=== PATIENT | male | born 1955 | race Caucasian/White ===

== ENCOUNTER 2021-08-13 06:33 | Emergency (ER) | payer MEDICARE, OTHER ==
[~2021-08-13] VITALS: Ht 170.2 cm; Wt 55.3 kg
[2021-08-13 07:18] LABS: BASOPHILS ABSOLUTE AUTO 0.01 K/mm3 (0.00-0.23); BASOPHILS PERCENT AUTO 0 % (0-2); EOSINOPHILS ABSOLUTE AUTO 0.01 K/mm3 (0.00-0.68); EOSINOPHILS PERCENT AUTO 0 % (0-6); Hematocrit 47.5 % (37.0-53.0); Hemoglobin 16.3 g/dL (13.5-17.5); IMMATURE GRAN ABSOLUTE AUTO 0.02 K/mm3 (0.00-0.10); IMMATURE GRAN PERCENT AUTO 0 % (0-1); LYMPHOCYTES PERCENT AUTO 8 % (21-46); MONOCYTES ABSOLUTE AUTO 0.39 K/mm3 (0.16-1.47); MONOCYTES PERCENT AUTO 4 % (4-13); Mean Corpuscular HGB 31.9 pg (26.0-34.0); Mean Corpuscular HGB Conc 34.3 g/dL (31.5-36.5); Mean Corpuscular Volume 93 fL (80-100); Mean Platelet Volume 9.2 fL (9.1-12.4); NEUTROPHILS ABSOLUTE AUTO 7.89 K/mm3 (1.96-9.15); NEUTROPHILS PERCENT AUTO 88 % (41-73); Platelet Count 183 K/mm3 (150-400); RDW Coefficient Variation 11.9 % (11.7-14.2); RDW Standard Deviation 41.1 fL (35.1-46.3); Red Blood Cell Count 5.11 M/mm3 (4.30-5.90); White Blood Cell Count 9.02 K/mm3 (4.00-11.30)
[2021-08-13 07:29] LABS: Anion Gap 8 mmol/L (6-16); Blood Urea Nitrogen 21 mg/dL (8-24); Bun/Creatinine Ratio 36.3 (12.0-20.0); CO2, Blood 27 mmol/L (21-32); Calcium, Blood 8.6 mg/dL (8.5-10.1); Chloride, Blood 105 mmol/L (98-108); Creatinine, Blood 0.58 mg/dL (0.60-1.20); Glomerular Filtration Rate >60 (60-); Glucose, Blood 113 mg/dL (70-99); Potassium, Blood 3.7 mmol/L (3.5-5.5); Sodium, Blood 140 mmol/L (136-145)
[2021-08-13 07:59] LABS: Influenza A, PCR NEGATIVE (NEGATIVE); Influenza B, PCR NEGATIVE (NEGATIVE); Resp Syncytial Virus, PCR NEGATIVE (NEGATIVE); SARS-Cov-2 (COVID-19) PCR, MMC NEGATIVE (NEGATIVE)
[2021-08-13] MEDS ORDERED: AZIT250 PO (08:20)
[2021-08-13] MEDS ORDERED: PRED20 PO (08:20)
[2021-08-13] MEDS ORDERED: ALBU90OI INH (08:20)
== END 2021-08-13 08:50 | disposition home or self-care (01) ==
LOC: ER 06:33
PROVIDERS: Emergency Medicine
DX: J44.1 Chronic obstructive pulmonary disease with (acute) exacerbation (principal); F17.210 Nicotine dependence, cigarettes, uncomplicated; Z20.822 Contact with and (suspected) exposure to COVID-19
CPT/HCPCS: 0241U; 71045; 80048; 85025; J2930

== ENCOUNTER 2022-03-24 10:05 | Emergency (ER) | payer MEDICARE, OTHER ==
[~2022-03-24] VITALS: Ht 170.2 cm; Wt 57.6 kg
[~2022-03-24 10:05] MED LIST: ALBU90OI INH; AZIT250 PO; PRED20 PO
[2022-03-24 11:01] LABS: BASOPHILS ABSOLUTE AUTO 0.03 K/mm3 (0.00-0.23); BASOPHILS PERCENT AUTO 1 % (0-2); EOSINOPHILS ABSOLUTE AUTO 0.07 K/mm3 (0.00-0.68); EOSINOPHILS PERCENT AUTO 1 % (0-6); Hematocrit 51.6 % (37.0-53.0); Hemoglobin 17.7 g/dL (13.5-17.5); IMMATURE GRAN ABSOLUTE AUTO 0.01 K/mm3 (0.00-0.10); IMMATURE GRAN PERCENT AUTO 0 % (0-1); LYMPHOCYTES ABSOLUTE AUTO 1.42 K/mm3 (0.84-5.20); LYMPHOCYTES PERCENT AUTO 23 % (21-46); MONOCYTES ABSOLUTE AUTO 0.28 K/mm3 (0.16-1.47); MONOCYTES PERCENT AUTO 4 % (4-13); Mean Corpuscular HGB 31.4 pg (26.0-34.0); Mean Corpuscular HGB Conc 34.3 g/dL (31.5-36.5); Mean Corpuscular Volume 92 fL (80-100); Mean Platelet Volume 9.3 fL (9.1-12.4); NEUTROPHILS ABSOLUTE AUTO 4.49 K/mm3 (1.96-9.15); NEUTROPHILS PERCENT AUTO 71 % (41-73); Platelet Count 182 K/mm3 (150-400); RDW Standard Deviation 40.8 fL (35.1-46.3); Red Blood Cell Count 5.64 M/mm3 (4.30-5.90)
[2022-03-24 11:17] LABS: Albumin, Blood 4.1 g/dL (3.4-5.0); Albumin/Globulin Ratio 1.1 (0.8-1.8); Bilirubin, Total 1.1 mg/dL (0.1-1.0); Bun/Creatinine Ratio 21.4 (12.0-20.0); Calcium, Blood 9.1 mg/dL (8.5-10.1); Creatinine, Blood 0.65 mg/dL (0.60-1.20); Globulin, Blood 3.6 g/dL (2.2-4.0); Total Protein, Blood 7.7 g/dL (6.4-8.2)
== END 2022-03-24 12:52 | disposition home or self-care (01) ==
LOC: ER 10:05
PROVIDERS: Physician Assistant
DX: R42 Dizziness and giddiness (principal); F17.210 Nicotine dependence, cigarettes, uncomplicated; H61.23 Impacted cerumen, bilateral
CPT/HCPCS: 36415; 71046; 80053; 85025; 93005; 93010; 99284-25; A9270

== ENCOUNTER 2022-07-13 05:04 | Inpatient (IN) | payer MEDICARE ==
[~2022-07-13] VITALS: Ht 170.2 cm; Wt 53.6 kg
[2022-07-13 06:33] LABS: Hematocrit 52.5 % (37.0-53.0); Hemoglobin 18.4 g/dL (13.5-17.5); Mean Corpuscular HGB 31.6 pg (26.0-34.0); Mean Corpuscular Volume 90 fL (80-100); Mean Platelet Volume 10.3 fL (9.1-12.4); Platelet Count 174 K/mm3 (150-400); RDW Coefficient Variation 12.3 % (11.7-14.2); RDW Standard Deviation 40.6 fL (35.1-46.3); Red Blood Cell Count 5.83 M/mm3 (4.30-5.90); White Blood Cell Count 9.96 K/mm3 (4.00-11.30)
[2022-07-13 06:34] LABS: Albumin, Blood 2.8 g/dL (3.4-5.0); Albumin/Globulin Ratio 0.6 (0.8-1.8); Bilirubin, Total 2.1 mg/dL (0.1-1.0); Bun/Creatinine Ratio 45.1 (12.0-20.0); Creatinine, Blood 0.84 mg/dL (0.60-1.20); Globulin, Blood 4.5 g/dL (2.2-4.0); Potassium, Blood 4.3 mmol/L (3.5-5.5); Total Protein, Blood 7.3 g/dL (6.4-8.2)
[2022-07-13 06:52] LABS: Influenza B, PCR NEGATIVE (NEGATIVE); Resp Syncytial Virus, PCR NEGATIVE (NEGATIVE); SARS-Cov-2 (COVID-19) PCR, MMC NEGATIVE (NEGATIVE)
[2022-07-13 07:01] LABS: Influenza A, PCR POSITIVE (NEGATIVE)
[2022-07-13 07:10] LABS: BAND PERCENT MAN 32 % (0-8); BASOPHILS PERCENT MAN 0 % (0-2); EOSINOPHILS PERCENT MAN 0 % (0-6); LYMPHOCYTES ABSOLUTE MAN 0.29 K/mm3 (0.84-5.20); LYMPHOCYTES PERCENT MAN 3 % (21-46); METAMYELOCYTE ABSOLUTE MAN 0.19 K/mm3 (0.00-0.00); METAMYELOCYTE PERCENT MAN 2 % (0-0); MONOCYTES PERCENT MAN 0 % (4-13); NEUTROPHILS ABSOLUTE MAN 9.46 K/mm3 (1.96-9.15); SEG NEUTROPHILS PERCENT MAN 63 % (41-73); TOTAL CELLS COUNTED 100
[2022-07-13 10:11] LABS: Base Excess Venous 1.2 mmol/L; Bicarbonate Venous 25.8 mmol/L (24.0-30.0); pH Blood Venous 7.45 (7.34-7.37)
--- NOTE | 2022-07-13 13:07 | NUR ---
Echocardiogram completed.
--- NOTE | 2022-07-13 20:57 | NUR ---
SHIFT SUMMARY PTN TRANSFER FROM ER IN AFTERNOON WITH PNEUMONIA. HX LUNG CA WITH LEFT UPPER LOBECTOMY. PTN IN SOME DISCOMFORT, BUT RESTING WELL THIS SHIFT. CONTINUE TO MONITOR.
[2022-07-14 05:37] LABS: Hematocrit 46.3 % (37.0-53.0); Hemoglobin 16.1 g/dL (13.5-17.5); Mean Corpuscular HGB 31.3 pg (26.0-34.0); Mean Corpuscular HGB Conc 34.8 g/dL (31.5-36.5); Mean Corpuscular Volume 90 fL (80-100); Mean Platelet Volume 10.1 fL (9.1-12.4); Platelet Count 146 K/mm3 (150-400); RDW Coefficient Variation 12.3 % (11.7-14.2); RDW Standard Deviation 41.2 fL (35.1-46.3); Red Blood Cell Count 5.15 M/mm3 (4.30-5.90); White Blood Cell Count 6.82 K/mm3 (4.00-11.30)
[2022-07-14 06:08] LABS: Albumin, Blood 2.1 g/dL (3.4-5.0); Albumin/Globulin Ratio 0.5 (0.8-1.8); Bilirubin, Direct 0.4 mg/dL (0.0-0.3); Bilirubin, Indirect 0.5 mg/dL (0.1-0.7); Bilirubin, Total 0.9 mg/dL (0.1-1.0); Bun/Creatinine Ratio 50.8 (12.0-20.0); Calcium, Blood 8.9 mg/dL (8.5-10.1); Creatinine, Blood 0.61 mg/dL (0.60-1.20); Globulin, Blood 3.9 g/dL (2.2-4.0); Potassium, Blood 4.2 mmol/L (3.5-5.5)
[2022-07-14 06:29] LABS: BAND PERCENT MAN 47 % (0-8); BASOPHILS PERCENT MAN 0 % (0-2); EOSINOPHILS PERCENT MAN 0 % (0-6); LYMPHOCYTES ABSOLUTE MAN 0.13 K/mm3 (0.84-5.20); LYMPHOCYTES PERCENT MAN 2 % (21-46); MONOCYTES ABSOLUTE MAN 0.06 K/mm3 (0.16-1.47); MONOCYTES PERCENT MAN 1 % (4-13); NEUTROPHILS ABSOLUTE MAN 6.61 K/mm3 (1.96-9.15); SEG NEUTROPHILS PERCENT MAN 50 % (41-73); TOTAL CELLS COUNTED 100
--- NOTE | 2022-07-14 13:09 | NUR ---
Spiritual Care Visit. Pt. is awake and had just been served lunch when he welcomed my visit. Pt. is pleasant, but is unsettled about his lung condition. Listen empathetically with a caplming presence. Pt. verbalizes that he has been staying at the [facility] [place], Pt. displays evidence of being somewhat embarassed by his situation, but is engaged and aware of his diagnosis. Prayd with the Pt. Pt. verbalized gratitude for the spiritual care visit.
--- NOTE | 2022-07-14 16:47 | NUR ---
SHIFT SUMMARY MR WILKERSON IS A&OX4. MAIN C/O COUGH, LEFT CHEST CONGESTION AND PAIN ON COUGHING. SWALLOWING SPUTUM, NONE SEEN. EATING AND DRINKING WELL. UP TO THE BATHROOM INDEPENDENTLY, DID C/O STOOL URGENCY/DIARRHEA X1. TYLENOL AND TORADOL INEFFECTIVE FOR PAIN RELIEF. TESSLON PEARLS HAVE EASED THE COUGH AND THE DISCOMFORT PER PT. EDUCATED ON IS AND ENCOURAGED TO PERFORM AND GOOD TECHNIQUE AT 750MLS. ON 4L O2 NC ALL DAY, RECEIVING RESPIRATORY TREATMENTS. BED LOW, CALL LIGHT IN REACH.
--- NOTE | 2022-07-15 03:13 | NUR ---
Patient resting in bed, no complaints of pain or discomfort at this time.
--- NOTE | 2022-07-15 06:27 | NUR ---
pt had 4 litter of 02 from nasal cannula at time of vitals
--- NOTE | 2022-07-15 17:37 | NUR ---
SHIFT SUMMARY PT REMAINED ON 4LPM VIA NC OXYGEN. WILL BECOME SOB WHEN AMBULATING TO BATHROOM. LUNGS ARE DIMINISHED AND WHEEZY. VISITED AT BEDSIDE BY HIS FRIEND ANGELICA, FROM THE [facility]. ANGELICA APPEARS TO BE A SUPPORT PERSON, THAT PT TRUSTS. DR. RAY ROUNDED AND ADDED A ONE TIME DOSE OF LASIX IV. PT IS INDEPENDENT IN ROOM, AND CAN USE URINAL AT BEDSIDE. PT IS A&O X4, PLEASANT. IV ACCESS TO LEFT HAND. PT SHOWERED TODAY. MONITORED REMOTELY BY TELEMETRY, CONTINUED IN THE SINUS RHYTHM. PT DENIES HAVING A PACEMAKER. BED IN LOWEST POSITION. ISO PRECAUTIONS FOR FLU/PNA. PT USES CALL LIGHT APPROPRIATELY.
--- NOTE | 2022-07-16 05:23 | NUR ---
SUMMARY: PATIENT DID WELL OVERNIGHT. INDEPENDENT IN ROOM. 4L NC. IV STEROIDS GIVEN. NO ACUTE EVENTS. VSS. TELE IN PLACE RUNNING SR. PATIENT AOX4. PLEASANT WITH STAFF, COMPLIANT WITH ALL CARE. CALL LIGHT IN REACH.
--- NOTE | 2022-07-16 18:15 | NUR ---
PT CONTINUES ON 4LPM VIA NC. A&O X4. VSS. INDEPENDENT IN ROOM. DR. COBB ADDED A FLUTTER VALVE AND A NEW ANTIBIOTIC TO TREATMENT PLAN. PT'S PAIN WAS WELL CONTROLLED THIS SHIFT WITH TYLENOL 3, ONE TIME PRN. PT WITH HX OF LUNG CANCER, AND LEFT UPPER LOBECTOMY. PT IS RESIDENT OF [facility], WHERE HE HAS HIS OWN APARTMENT. PT'S FRIEND ANGELICA CASILLAS VISITED HIM AGAIN TODAY. BED IN LOWEST POSITION, PT ABLE TO USE CALL LIGHT APPROPRIATELY.
--- NOTE | 2022-07-17 05:00 | NUR ---
SHIFT SUMMARY ADMITTED FOR LEFT SIDE PNEUMONIA/SEPSIS. FULL CODE. FLU+. ANTIB RX AND TAMIFLU ARE SCHEDULED. HOME O2 EVAL MAY BE NECESSARY. HE RESIDES AT THE [facility]. IT IS REPORTED THAT HE HAS HIS OWN APARTMENT AND COATS THERE. HE IS INDEPENDENT - BRP. HE DENIES PAIN THUS FAR THIS SHIFT. HE IS A&O X4. TELEMETRY: NSR @ 63 BPM. HE IS PLEASANT AND COOPERATIVE WITH CARE. NO NEW CONCERNS THIS SHIFT
--- NOTE | 2022-07-17 19:42 | NUR ---
DANE CONTINUED ON 4LPM O2. TRANSITIONED TO PO STEROIDS AND PO ABX. IV ACCESS TO RIGHT FOREARM. INDEPENDENT IN ROOM AND USES THE URINAL. ENCOURAGE USE OF FLUTTER VALVE. PAINFUL WITH COUGHING, RAMSEY ON THE LEFT SIDE. TREATING PAIN WITH TYLENOL #3. TELEMETRY MONITORED DANE, HE IS SINUS IN THE 70'S TO 80'S. DENIES CHEST PRESSURE AND PAIN. NO ACUTE CHANGES. WILL NEED HOME OXYGEN EVAL PRIOR TO DISCHARGE. LIVES IN AN APARTMENT IN THE [facility], WITH HIS OWN COATS.
--- NOTE | 2022-07-18 04:42 | NUR ---
PARQUETRY LAYER SUMMARY: A&Ox4. PLEASANT AND COOPERATIVE WITH CARE. CALLS APPROPRIATELY AND IS ABLE TO ADVOCATE NEEDS. INDEPENDENT WITHIN ROOM AND UTILIZES BEDSIDE URINAL FOR VOIDING. TELE SINUS; BATTERIES CHANGED DURING THIS SHIFT. ENCOURAGE USE OF FLUTTER VALVE TO HELP WITH CHEST CONGESTION. MEDICATED x1 T-3 AT BEDTIME FOR C/O PAIN R/T COUGHING. ALSO ADMINISTERED PRN TESSALON PERLES. MAINTAINING SPO2 >92% ON 4L/min VIA NC. ANTICIPATE DC HOME TO [facility] (HE HAS AN APARTMENT AT THIS FACILITY) BUT WILL NEED A HOME 02 EVAL COORDINATED PRIOR TO DC. WILL REPORT TO ONCOMING RN.
[2022-07-18] MEDS ORDERED: MASOPHEN325 M2 PO (10:58)
[2022-07-18] MEDS ORDERED: AMOCLA875 PO (10:59)
[2022-07-18] MEDS ORDERED: Tessalon200 MG PO (11:01)
[2022-07-18] MEDS ORDERED: IPRAT-ALBUT 0.5-3 ML INH (11:03)
[2022-07-18] MEDS ORDERED: NICO21TP TOP (11:05)
[2022-07-18] MEDS ORDERED: PANT20 PO (11:05)
[2022-07-18] MEDS ORDERED: PRED20 PO (11:05)
[2022-07-18] MEDS ORDERED: VISBIOME 112.51 EACH PO (11:07)
[2022-07-18] MEDS ORDERED: FLUTICASONE-SA1 EA11 INH (11:12)
--- NOTE | 2022-07-18 13:06 | NUR ---
PLAN IS FOR DISCHARGE BACK TO [facility], WHERE PT HAS HIS OWN APARTMENT AND COATS. HOME O2 EVAL COMPLETED, WHICH INDICATED THAT PT REQUIRED 2LPM O2 VIA NC TO MAINTAIN SATS GREATER THAN 90% WITH ACTIVITY. MEDICATION DISCHARGE TEACHING WAS COMPLETED BY TELECOMMUNICATIONS CONSULTANT JEAN. PT'S RIDE WILL BE FROM A FRIEND VIA PRIVATE VEHICLE BACK TO [facility].
--- NOTE | 2022-07-18 13:44 | NUR ---
OK FROM NURSING TRAVELING REPAIR ACCOUNTANT - [facility] WILL PAY FOR A TAXI TO THE [facility]. AWAITING DELIVERY FROM [facility] OF OXYGEN EQUIPMENT.
--- NOTE | 2022-07-18 15:40 | NUR ---
PT WAS DISCHARGED TO [facility] VIA [facility] TAXI, ALL WITH ALL HIS BELONGINGS. DISCHARGE TEACHING COMPLETED, INCLUDING KEEPING 07/[address] HERNÁNDEZ AND HAVING HOME NEBULIZER DELIVERED BY [facility]. MEDICATIONS WERE FAXED TO [facility] BY CHARGE NURSE JEAN. PT WAS CONNECTED TO CONTINUOUS 2LPM O2 VIA HOME MACHINE DELIVERED BY [facility]. PT HAD NO FURTHER QUESTIONS AT THIS TIME. TELE WAS REMOVED, IV WAS REMOVED.
== END 2022-07-18 13:57 | disposition home or self-care (01) | DRG 871 ==
LOC: ER 05:04 → ERHOLD 08:40 → MEDS 15:10
PROVIDERS: Student in an Organized Health Care Education/Training Program; ADMIT Internal Medicine
DX: A41.89 Other specified sepsis (principal); J10.00 Influenza due to other identified influenza virus with unspecified type of pneumonia; J96.01 Acute respiratory failure with hypoxia; J44.1 Chronic obstructive pulmonary disease with (acute) exacerbation; J44.0 Chronic obstructive pulmonary disease with (acute) lower respiratory infection; Z68.1 Body mass index [BMI] 19.9 or less, adult; R65.20 Severe sepsis without septic shock; F17.210 Nicotine dependence, cigarettes, uncomplicated; R79.1 Abnormal coagulation profile; R74.8 Abnormal levels of other serum enzymes; R63.0 Anorexia; R19.7 Diarrhea, unspecified; Z20.822 Contact with and (suspected) exposure to COVID-19; Z88.8 Allergy status to other drugs, medicaments and biological substances; Z59.01 Sheltered homelessness; Z79.2 Long term (current) use of antibiotics; Z79.51 Long term (current) use of inhaled steroids; Z79.52 Long term (current) use of systemic steroids; Z85.118 Personal history of other malignant neoplasm of bronchus and lung; Z98.890 Other specified postprocedural states
CPT/HCPCS: 0241U; 36415; 71046; 80048; 80053; 80076; 82803; 83605; 83880; 84145; 84484; 85025; 87040; 93005; 93010; 93306; 94640; 94664; 94760; 94761; 96374; 96375; 96376; 99285-25; A9270; C9113; J0696; J1650; J1885; J1940; J2270; J2930; J7030; J7120; J7512

== ENCOUNTER 2022-08-16 10:18 | Observation (INO) | payer MEDICARE, OTHER ==
[~2022-08-16] VITALS: Ht 170.2 cm; Wt 54.4 kg
[~2022-08-16 10:18] MED LIST changes: +AMOCLA875 PO; +FLUTICASONE-SA1 EA11 INH; +IPRAT-ALBUT 0.5-3 ML INH; +MASOPHEN325 M2 PO; +NICO21TP TOP; +PANT20 PO; +Tessalon200 MG PO; +VISBIOME 112.51 EACH PO
[2022-08-16 11:05] LABS: BASOPHILS ABSOLUTE AUTO 0.02 K/mm3 (0.00-0.23); BASOPHILS PERCENT AUTO 0 % (0-2); EOSINOPHILS PERCENT AUTO 0 % (0-6); Hematocrit 47.4 % (37.0-53.0); Hemoglobin 15.9 g/dL (13.5-17.5); IMMATURE GRAN ABSOLUTE AUTO 0.03 K/mm3 (0.00-0.10); IMMATURE GRAN PERCENT AUTO 0 % (0-1); LYMPHOCYTES ABSOLUTE AUTO 1.15 K/mm3 (0.84-5.20); LYMPHOCYTES PERCENT AUTO 14 % (21-46); MONOCYTES ABSOLUTE AUTO 0.45 K/mm3 (0.16-1.47); MONOCYTES PERCENT AUTO 6 % (4-13); Mean Corpuscular HGB 31.1 pg (26.0-34.0); Mean Corpuscular HGB Conc 33.5 g/dL (31.5-36.5); Mean Corpuscular Volume 93 fL (80-100); Mean Platelet Volume 8.6 fL (9.1-12.4); NEUTROPHILS ABSOLUTE AUTO 6.58 K/mm3 (1.96-9.15); NEUTROPHILS PERCENT AUTO 80 % (41-73); Platelet Count 244 K/mm3 (150-400); RDW Coefficient Variation 12.6 % (11.7-14.2); RDW Standard Deviation 43.3 fL (35.1-46.3); Red Blood Cell Count 5.11 M/mm3 (4.30-5.90); White Blood Cell Count 8.23 K/mm3 (4.00-11.30)
[2022-08-16 11:06] LABS: Source, Urine Clean Catch
[2022-08-16 11:09] LABS: Appearance, Urine Clear (Clear); Bilirubin, Urine Neg (Neg); Blood, Urine 1+ (Neg); Color, Urine Yellow (P-Yellow); Glucose Qualitative, Urine Neg (Neg); Ketones, Urine Neg (Neg); Leukocyte Esterase, Urine Neg (Neg); Nitrite, Urine Neg (Neg); Protein, Urine 1+ (Neg); Specific Gravity, Urine 1.015 (1.003-1.022); Urobilinogen, Urine NORM (Normal); pH, Urine 6.5 (5.0-8.0)
[2022-08-16 11:26] LABS: U Amphetamine Screen Not Detected; U Barbituate Screen Not Detected; U Benzodiazapine Screen Not Detected; U Buprenorphine Screen Not Detected; U Cannabinoids Screen Not Detected; U Cocaine Screen Not Detected; U Methadone Screen Not Detected; U Methamphetamine Screen Not Detected; U Opiates Screen Not Detected; U Oxycodone Screen Not Detected; U Phencyclidine Screen Not Detected; U Propoxyphene Screen Not Detected
[2022-08-16 11:34] LABS: Ethanol (Alcohol), Blood, Med <3 mg/dL; Salicylate <1.7 mg/dL (2.8-20.0)
[2022-08-16 11:35] LABS: Acetaminophen, Random <2.0 ug/mL (10.0-30.0); Alanine Aminotransfer (ALT/SGP 21 U/L (12-78); Albumin, Blood 3.5 g/dL (3.4-5.0); Albumin/Globulin Ratio 0.9 (0.8-1.8); Alk Phos 83 U/L (50-136); Anion Gap 2 mmol/L (6-16); Aspartate Aminotrans (AST/SGOT 14 U/L (12-37); Bilirubin, Total 0.9 mg/dL (0.1-1.0); Blood Urea Nitrogen 10 mg/dL (8-24); Bun/Creatinine Ratio 17.4 (12.0-20.0); CO2, Blood 31 mmol/L (21-32); Calcium, Blood 9.1 mg/dL (8.5-10.1); Chloride, Blood 103 mmol/L (98-108); Creatinine, Blood 0.57 mg/dL (0.60-1.20); Globulin, Blood 3.7 g/dL (2.2-4.0); Glomerular Filtration Rate 108 (60-); Glucose, Blood 122 mg/dL (70-99); Potassium, Blood 3.9 mmol/L (3.5-5.5); Sodium, Blood 136 mmol/L (136-145); Total Protein, Blood 7.2 g/dL (6.4-8.2)
[2022-08-16 11:41] LABS: Bacteria Rare /hpf; Red Blood Cells, Urine 0-2 /hpf (0-2); Squamous Epithelial Cells Rare /hpf (Few); White Blood Cells, Urine 0-2 /hpf (0-5)
[2022-08-16 12:32] LABS: Influenza A, PCR NEGATIVE (NEGATIVE); Influenza B, PCR NEGATIVE (NEGATIVE); Resp Syncytial Virus, PCR NEGATIVE (NEGATIVE); SARS-Cov-2 (COVID-19) PCR, MMC NEGATIVE (NEGATIVE)
== END 2022-08-18 22:15 ==
LOC: ER 10:18 → EOR 10:19
PROVIDERS: Physician Assistant; ADMIT Student in an Organized Health Care Education/Training Program
DX: R45.851 Suicidal ideations (principal); J44.9 Chronic obstructive pulmonary disease, unspecified; F17.210 Nicotine dependence, cigarettes, uncomplicated; Z85.118 Personal history of other malignant neoplasm of bronchus and lung; Z88.8 Allergy status to other drugs, medicaments and biological substances
CPT/HCPCS: 0241U; 36415; 71045; 71250; 80053; 81001; 85025; 93005; 93010; 99285-25; A9270; G0378; G0480

== ENCOUNTER 2022-10-13 08:39 | Emergency (ER) | payer MEDICARE, OTHER ==
[~2022-10-13] VITALS: Ht 170.2 cm; Wt 54.4 kg
[2022-10-13] MEDS ORDERED: HYDHCL25 PO (09:33)
[2022-10-13] MEDS ORDERED: MELATONIN5 M1 PO (09:33)
== END 2022-10-13 10:22 | disposition home or self-care (01) ==
LOC: ER 08:39
DX: G47.00 Insomnia, unspecified (principal); J44.9 Chronic obstructive pulmonary disease, unspecified; F17.210 Nicotine dependence, cigarettes, uncomplicated; Z88.8 Allergy status to other drugs, medicaments and biological substances
CPT/HCPCS: 99283

== ENCOUNTER 2022-11-26 09:14 | Observation (INO) | payer MEDICARE, OTHER ==
[~2022-11-26] VITALS: Ht 170.2 cm; Wt 59.0 kg
[~2022-11-26 09:14] MED LIST changes: +HYDHCL25 PO; +MELATONIN5 M1 PO
[2022-11-26] MEDS ORDERED: TAMS.4ER PO (09:59)
[2022-11-26] MEDS ORDERED: MIRT30 PO (09:59)
[2022-11-26] MEDS ORDERED: VENL150ER PO (09:59)
[2022-11-26] MEDS ORDERED: OLAN5 PO (09:59)
[2022-11-26 11:22] LABS: Source, Urine Clean Catch
[2022-11-26 11:26] LABS: BASOPHILS ABSOLUTE AUTO 0.01 K/mm3 (0.00-0.23); BASOPHILS PERCENT AUTO 0 % (0-2); EOSINOPHILS ABSOLUTE AUTO 0.02 K/mm3 (0.00-0.68); EOSINOPHILS PERCENT AUTO 0 % (0-6); Hematocrit 54.4 % (37.0-53.0); Hemoglobin 18.1 g/dL (13.5-17.5); IMMATURE GRAN ABSOLUTE AUTO 0.01 K/mm3 (0.00-0.10); IMMATURE GRAN PERCENT AUTO 0 % (0-1); LYMPHOCYTES ABSOLUTE AUTO 1.04 K/mm3 (0.84-5.20); LYMPHOCYTES PERCENT AUTO 16 % (21-46); MONOCYTES ABSOLUTE AUTO 0.34 K/mm3 (0.16-1.47); MONOCYTES PERCENT AUTO 5 % (4-13); Mean Corpuscular HGB 30.2 pg (26.0-34.0); Mean Corpuscular HGB Conc 33.3 g/dL (31.5-36.5); Mean Corpuscular Volume 91 fL (80-100); Mean Platelet Volume 9.3 fL (9.1-12.4); NEUTROPHILS ABSOLUTE AUTO 5.08 K/mm3 (1.96-9.15); NEUTROPHILS PERCENT AUTO 78 % (41-73); Platelet Count 246 K/mm3 (150-400); RDW Coefficient Variation 11.9 % (11.7-14.2); RDW Standard Deviation 39.6 fL (35.1-46.3)
[2022-11-26 11:27] LABS: Appearance, Urine Clear (Clear); Bilirubin, Urine Neg (Neg); Blood, Urine Neg (Neg); Color, Urine Yellow (P-Yellow); Glucose Qualitative, Urine Neg (Neg); Ketones, Urine Neg (Neg); Leukocyte Esterase, Urine Neg (Neg); Nitrite, Urine Neg (Neg); Protein, Urine Neg (Neg); Specific Gravity, Urine 1.015 (1.003-1.022); Urobilinogen, Urine NORM (Normal); pH, Urine 6.5 (5.0-8.0)
[2022-11-26 11:47] LABS: Ethanol (Alcohol), Blood, Med <3 mg/dL; Salicylate 2.2 mg/dL (2.8-20.0)
[2022-11-26 11:49] LABS: Alanine Aminotransfer (ALT/SGP 17 U/L (12-78); Albumin, Blood 3.4 g/dL (3.4-5.0); Albumin/Globulin Ratio 0.8 (0.8-1.8); Alk Phos 80 U/L (50-136); Anion Gap Unable to Calculate mmol/L (6-16); Aspartate Aminotrans (AST/SGOT 13 U/L (12-37); Bilirubin, Total 0.3 mg/dL (0.1-1.0); Blood Urea Nitrogen 14 mg/dL (8-24); Bun/Creatinine Ratio 18.8 (12.0-20.0); CO2, Blood 35 mmol/L (21-32); Chloride, Blood 104 mmol/L (98-108); Creatinine, Blood 0.75 mg/dL (0.60-1.20); Globulin, Blood 4.2 g/dL (2.2-4.0); Glomerular Filtration Rate 99 (60-); Glucose, Blood 155 mg/dL (70-99); Potassium, Blood 4.1 mmol/L (3.5-5.5); Sodium, Blood 137 mmol/L (136-145); Total Protein, Blood 7.6 g/dL (6.4-8.2)
[2022-11-26 11:50] LABS: Acetaminophen, Random <2.0 ug/mL (10.0-30.0)
[2022-11-26 11:55] LABS: U Amphetamine Screen Not Detected; U Barbituate Screen Not Detected; U Benzodiazapine Screen Not Detected; U Buprenorphine Screen Not Detected; U Cannabinoids Screen Not Detected; U Cocaine Screen Not Detected; U Methadone Screen Not Detected; U Methamphetamine Screen Not Detected; U Opiates Screen Not Detected; U Oxycodone Screen Not Detected; U Phencyclidine Screen Not Detected; U Propoxyphene Screen Not Detected
[2022-11-26 17:02] LABS: Influenza A, PCR NEGATIVE (NEGATIVE); Influenza B, PCR NEGATIVE (NEGATIVE); Resp Syncytial Virus, PCR NEGATIVE (NEGATIVE); SARS-Cov-2 (COVID-19) PCR, MMC NEGATIVE (NEGATIVE)
[2022-11-26 20:46] VITALS: BP 136/76
== END 2022-11-27 00:23 ==
LOC: ER 09:14 → EOR 09:15
PROVIDERS: Emergency Medicine; ADMIT Student in an Organized Health Care Education/Training Program
DX: F32.A Depression, unspecified (principal); F17.210 Nicotine dependence, cigarettes, uncomplicated; J44.1 Chronic obstructive pulmonary disease with (acute) exacerbation; Z20.822 Contact with and (suspected) exposure to COVID-19; Z90.2 Acquired absence of lung [part of]; Z91.51 Personal history of suicidal behavior; Z79.899 Other long term (current) drug therapy; Z85.118 Personal history of other malignant neoplasm of bronchus and lung
CPT/HCPCS: 0241U; 71046; 80053; 81003; 85025; 93005; 93010; 94644; 94664; 99285-25; A9270; G0378; G0480; J7512; Q3014

== ENCOUNTER 2023-06-20 07:21 | Inpatient (IN) | payer MEDICARE, OTHER ==
[~2023-06-20] VITALS: Ht 170.2 cm; Wt 54.4 kg
[~2023-06-20 07:21] MED LIST changes: +Benztropine Me0.5 MG PO; +MIRT30 PO; +OLAN5 PO; +REMERON30 M9 PO; +TAMS.4ER PO; +TRAZ50; +VENL150ER PO; +ZYPREXA15 MG PO
[2023-06-20 07:48] LABS: BASOPHILS ABSOLUTE AUTO 0.03 K/mm3 (0.00-0.23); BASOPHILS PERCENT AUTO 0 % (0-2); EOSINOPHILS PERCENT AUTO 0 % (0-6); Hematocrit 50.8 % (37.0-53.0); Hemoglobin 16.9 g/dL (13.5-17.5); IMMATURE GRAN ABSOLUTE AUTO 0.07 K/mm3 (0.00-0.10); IMMATURE GRAN PERCENT AUTO 0 % (0-1); LYMPHOCYTES PERCENT AUTO 3 % (21-46); MONOCYTES ABSOLUTE AUTO 0.82 K/mm3 (0.16-1.47); MONOCYTES PERCENT AUTO 5 % (4-13); Mean Corpuscular HGB 31.5 pg (26.0-34.0); Mean Corpuscular HGB Conc 33.3 g/dL (31.5-36.5); Mean Corpuscular Volume 95 fL (80-100); Mean Platelet Volume 9.8 fL (9.1-12.4); NEUTROPHILS ABSOLUTE AUTO 16.84 K/mm3 (1.96-9.15); NEUTROPHILS PERCENT AUTO 92 % (41-73); Platelet Count 227 K/mm3 (150-400); RDW Coefficient Variation 13.5 % (11.7-14.2); RDW Standard Deviation 47.1 fL (35.1-46.3); Red Blood Cell Count 5.37 M/mm3 (4.30-5.90); White Blood Cell Count 18.26 K/mm3 (4.00-11.30)
[2023-06-20 08:24] LABS: Albumin, Blood 3.2 g/dL (3.4-5.0); Albumin/Globulin Ratio 0.7 (0.8-1.8); Bilirubin, Total 1.5 mg/dL (0.1-1.0); Bun/Creatinine Ratio 27.1 (12.0-20.0); Calcium, Blood 9.1 mg/dL (8.5-10.1); Creatinine, Blood 0.7 mg/dL (0.60-1.20); Globulin, Blood 4.3 g/dL (2.2-4.0); Potassium, Blood 3.9 mmol/L (3.5-5.5); Total Protein, Blood 7.5 g/dL (6.4-8.2)
[2023-06-20 12:59] LABS: Adenovirus Not Detected (NOT DETECT); Bordetella pertussis Not Detected (NOT DETECT); Chlamydophila pneumoniae Not Detected (NOT DETECT); Coronavirus 229E Not Detected (NOT DETECT); Coronavirus HKU1 Not Detected (NOT DETECT); Coronavirus NL63 Not Detected (NOT DETECT); Coronavirus OC43 Not Detected (NOT DETECT); Human Metapneumovirus Not Detected (NOT DETECT); Human Rhinovirus/Enterovirus Not Detected (NOT DETECT); Influenza A/2009-H1 Not Detected (NOT DETECT); Influenza A/H1 Not Detected (NOT DETECT); Influenza A/H3 Not Detected (NOT DETECT); Influenza B Not Detected (NOT DETECT); Mycoplasma pneumoniae Not Detected (NOT DETECT); Parainfluenza Virus 1 Not Detected (NOT DETECT); Parainfluenza Virus 2 Not Detected (NOT DETECT); Parainfluenza Virus 3 Not Detected (NOT DETECT); Parainfluenza Virus 4 Not Detected (NOT DETECT); Respiratory Syncytial Virus Not Detected (NOT DETECT); SARS-Cov-2 (COVID-19), BioFire Not Detected (NOT DETECT)
[2023-06-20 14:19] VITALS: BP 119/58
--- NOTE | 2023-06-20 17:21 | NUR ---
SHIFT SUMMARY; PATIENT ARRIVED TO MED FLOOR SHORTLY AFTER 1400. HE IS AO X 4 ON ARRIVAL. 2 LITERS O2 VIA NASAL CANNULA. PROVIDED WITH A BED BATH AND CLEAN GOWN. PATIENT GIVES HIS PEARL DIGGER AND CIGARRETTES TO THIS RN FOR PLACEMENT IN THE LOCKED PAITENT DRAWER NEXT TO NURSE ELECTRICAL CONTINUITY TESTER. HE IS INDEPENDANT TO THE BATHROOM. HE HAS LOOSE STOOLS WHEN USING BATHROOM FOR THE FIRST TIME. DENIES ANY PAIN OR DISCOMFORT. BOWEL TONES ARE HYPERACTIVE AND PATIENT REQUESTS FOOD UPON ARRIVAL. NO SKIN ISSUES ARE NOTED. HE ANSWERS ALL QUESTIONS APPROPRIATELY. DENIES ANY HOME MEDS. DENIES ANY PCP AT THIS TIME. WANTS TO REQUEST CASE MANAGEMENT FIND HIM A RESIDENTIAL PLACEMENT TO LIVE WHEN HE IS RELEASED FROM THE HOSPITAL. WILL REMAIN AVAILABLE FOR ANY WANTS OR NEEDS FOR THIS PATIENT UNTIL REPORT AND HAND OFF AT [facility] SHIFT CHANGE.
[2023-06-20 19:55] VITALS: BP 109/55
--- NOTE | 2023-06-21 05:42 | NUR ---
SHIFT SUMMARY PATIENT A/OX4, PLEASANT AFFECT, DENIES PAIN, WITHOUT C/O SOB, STATES ONLY GETS SOB WHEN GETTING UP TO THE BATHROOM. ENCOURAGED PATIENT TO USE BEDSIDE COMMODE, PATIENT DECLINED. INDEPENDENT IN ROOM. NO ACUTE CHANGES NOTED OVERNIGHT. BED LOCKED, HOB ELEVATED FOR PATIENT COMFORT, CALL LIGHT WITHIN REACH.
[2023-06-21 07:08] LABS: Bun/Creatinine Ratio 33.4 (12.0-20.0); Calcium, Blood 8.7 mg/dL (8.5-10.1); Creatinine, Blood 0.63 mg/dL (0.60-1.20); Potassium, Blood 3.7 mmol/L (3.5-5.5)
[2023-06-21 07:13] LABS: BASOPHILS ABSOLUTE AUTO 0.01 K/mm3 (0.00-0.23); BASOPHILS PERCENT AUTO 0 % (0-2); EOSINOPHILS PERCENT AUTO 0 % (0-6); IMMATURE GRAN ABSOLUTE AUTO 0.05 K/mm3 (0.00-0.10); IMMATURE GRAN PERCENT AUTO 0 % (0-1); LYMPHOCYTES ABSOLUTE AUTO 0.39 K/mm3 (0.84-5.20); LYMPHOCYTES PERCENT AUTO 3 % (21-46); MONOCYTES ABSOLUTE AUTO 0.15 K/mm3 (0.16-1.47); MONOCYTES PERCENT AUTO 1 % (4-13); Mean Corpuscular HGB 31.7 pg (26.0-34.0); Mean Corpuscular HGB Conc 34.1 g/dL (31.5-36.5); Mean Corpuscular Volume 93 fL (80-100); Mean Platelet Volume 10.5 fL (9.1-12.4); NEUTROPHILS ABSOLUTE AUTO 12.17 K/mm3 (1.96-9.15); NEUTROPHILS PERCENT AUTO 95 % (41-73); Platelet Count 191 K/mm3 (150-400); RDW Coefficient Variation 13.2 % (11.7-14.2); RDW Standard Deviation 45.2 fL (35.1-46.3); Red Blood Cell Count 4.73 M/mm3 (4.30-5.90); White Blood Cell Count 12.77 K/mm3 (4.00-11.30)
[2023-06-21 07:41] VITALS: BP 107/65
[2023-06-21 08:52] LABS: BAND PERCENT MAN 1 % (0-8); BASOPHILS PERCENT MAN 0 % (0-2); EOSINOPHILS PERCENT MAN 0 % (0-6); LYMPHOCYTES ABSOLUTE MAN 0.12 K/mm3 (0.84-5.20); LYMPHOCYTES PERCENT MAN 1 % (21-46); MONOCYTES PERCENT MAN 0 % (4-13); NEUTROPHILS ABSOLUTE MAN 12.64 K/mm3 (1.96-9.15); SEG NEUTROPHILS PERCENT MAN 98 % (41-73); TOTAL CELLS COUNTED 100
[2023-06-21 08:58] VITALS: BP 104/58
--- NOTE | 2023-06-21 10:54 | NUR ---
RN NOTE MR WILKERSON HAS C/O CHEST TIGHTNESS AND SOB AT REST. HE IS GETTING RESP TREATMESNTS Q4HRS, ON OXYGEN 4L N/C. C/O SEVERE DIZZYNESS AND SOB WHEN HE SAT ON THE EDGE OF THE BED AT WHICH TIME HE WAS HELPED BACK INTO BED AND USED THE URINAL. ASSESSED AT BEDSIDE BY DR DUNN AND PLAN OF CARE DISCUSSED WITH PT. BED ALARM IS ON AND PT WAS EDUCATED THAT THE BED ALARM IS TO REMIND HIM NOT TO TRY TO GET UP BY HIMSELF. MR WILKERSON IS REQUESTING ADMISSION TO A NURSING FACILITY ON DISCHARGE FROM THE HOSPITAL HE FEELS HIS MEDICAL CONDITION IS TOO MUCH TO MANAGE AT THE [facility]. DIRECTOR PACKAGING MATEO INVOLVED IN HIS CARE. BED LOW, CALL LIGHT IN REACH.
[2023-06-21 15:26] VITALS: BP 105/50
--- NOTE | 2023-06-21 16:34 | NUR ---
SHIFT SUMMARY MR WILKERSON HAD A LOT OF DIZZYNESS THIS MORNING AND HAS BEEN GENERALLY FEELING UNWELL AND SOB THROUGHOUT THE DAY. HE STILL C/O DIZZYNESS WHEN STANDING BUT WITHOUT THE PALLOR THAT HE HAD THIS AM. WEANED DOWN TO 3L N/C. AMBULATED IN THE ROOM WITH PHYSICAL THERAPY WITHOUT DROPPING O2 SATS BELOW 90%. S/B GLOBAL RECRUITER, ENCOURAGED TO CONSUME ENSURE BETWEEN MEALS. HE HAS TAKEN ONE SO FAR. BED LOW, CALL LIGHT IN REACH.
[2023-06-21 19:55] VITALS: BP 105/60
--- NOTE | 2023-06-22 04:14 | NUR ---
SHIFT SUMMARY PATIENT A/Ox4, DENIES PAIN/DISCOMFORT, WITHOUT CURRENT C/O SOB. BRIEFLY HAD NON-PRODUCTIVE COUGH THAT RESOLVED BY HS. MOSTLY INDEPENDENT IN ROOM. NO ACUTE CHANGES NOTED OVERNIGHT. STATES SLEPT MUCH BETTER THIS SHIFT. BED LOCKED, HOB ELEVATED FOR PATIENT COMFORT, CALL LIGHT WITHIN REACH.
[2023-06-22 04:36] VITALS: BP 102/70
[2023-06-22 05:28] LABS: BASOPHILS ABSOLUTE AUTO 0.01 K/mm3 (0.00-0.23); BASOPHILS PERCENT AUTO 0 % (0-2); EOSINOPHILS PERCENT AUTO 0 % (0-6); Hematocrit 44.1 % (37.0-53.0); Hemoglobin 14.8 g/dL (13.5-17.5); IMMATURE GRAN ABSOLUTE AUTO 0.03 K/mm3 (0.00-0.10); IMMATURE GRAN PERCENT AUTO 0 % (0-1); LYMPHOCYTES ABSOLUTE AUTO 0.31 K/mm3 (0.84-5.20); LYMPHOCYTES PERCENT AUTO 3 % (21-46); MONOCYTES ABSOLUTE AUTO 0.17 K/mm3 (0.16-1.47); MONOCYTES PERCENT AUTO 2 % (4-13); Mean Corpuscular HGB 31.5 pg (26.0-34.0); Mean Corpuscular HGB Conc 33.6 g/dL (31.5-36.5); Mean Corpuscular Volume 94 fL (80-100); Mean Platelet Volume 9.9 fL (9.1-12.4); NEUTROPHILS ABSOLUTE AUTO 10.09 K/mm3 (1.96-9.15); NEUTROPHILS PERCENT AUTO 95 % (41-73); Platelet Count 186 K/mm3 (150-400); RDW Coefficient Variation 13.1 % (11.7-14.2); RDW Standard Deviation 45.2 fL (35.1-46.3); White Blood Cell Count 10.61 K/mm3 (4.00-11.30)
[2023-06-22 06:01] LABS: BASOPHILS PERCENT MAN 0 % (0-2); EOSINOPHILS PERCENT MAN 0 % (0-6); LYMPHOCYTES ABSOLUTE MAN 0.53 K/mm3 (0.84-5.20); LYMPHOCYTES PERCENT MAN 5 % (21-46); MONOCYTES PERCENT MAN 0 % (4-13); NEUTROPHILS ABSOLUTE MAN 10.07 K/mm3 (1.96-9.15); SEG NEUTROPHILS PERCENT MAN 95 % (41-73); TOTAL CELLS COUNTED 100
[2023-06-22 06:09] LABS: Bun/Creatinine Ratio 27.4 (12.0-20.0); Calcium, Blood 8.5 mg/dL (8.5-10.1); Creatinine, Blood 0.73 mg/dL (0.60-1.20); Potassium, Blood 3.9 mmol/L (3.5-5.5)
[2023-06-22 07:32] VITALS: BP 110/66
[2023-06-22 13:56] VITALS: BP 111/59
[2023-06-22 19:26] VITALS: BP 107/77
--- NOTE | 2023-06-23 04:10 | NUR ---
SHIFT CHANGE NO ACUTE CHANGES THIS SHIFT. VSS. AXO4. ON RA-2LNC DEPENDING ON EXERTION, BUT MOSTLY RA. WHEEZING NOTED BILATERALLY ON EXPIRATION WITH OCC COUGHING; EXPECTORATION HAS DECREASED PER PATIENT. PT CONTINENT, DARK YELLOW URINE. PT REQUESTED SLEEP MEDS THIS SHIFT, ADMINISTERED TO INTENDED EFFECT; PT RESTING THROUGH MAJORITY OF SHIFT.
[2023-06-23 04:58] VITALS: BP 112/60
[2023-06-23 07:32] VITALS: BP 125/62
--- NOTE | 2023-06-23 12:13 | NUR ---
PATIENT LEAVING FACILITY WITH [facility]IA [facility] AT 1210. CALL PLACED TO [facility] FOR RN TO RN REPORT. WAITING ON HOLD FOR 10 MINUTES.
[2023-06-23 19:35] VITALS: BP 121/56
--- NOTE | 2023-06-23 19:53 | NUR ---
SHIFT SUMMARY PATIENT WITH COUGHING DISCOMFORT DURING SHIFT. GIVEN TESSALON PEARLES WITH NO RELIEF. PATIENT REPORTS DIZZINESS CONTINUED WITH STANDING UP AND WALKING TO BATHROOM. BED IN LOW POSITION, CALL LIGHT IN REACH. PATIENT CALLS APPROPRIATELY.
[2023-06-24 03:43] VITALS: BP 125/73
[2023-06-24 07:20] VITALS: BP 119/59
--- NOTE | 2023-06-24 07:43 | NUR ---
END OF SHIFT SUMMARY PT A&Ox4, VSS, AFEBRILE. PT REQUESTED SLEEP AIDS, MELATONIN AND TRAZODONE GIVEN AND EFFECTIVE. COUGH SYRUP ROBITUSSIN AND PAIN MEDICATION HELPED RELIEF CHEST DISCOMFORT FROM COUGHING. PT SLEPT WELL FOR MOST OF THE NIGHT. IV STEROIDS GIVEN. PT ON RA OVERNIGHT, NO DIFFICULTIES WITH BREATHING, RESP RATE EVEN AND UNLABORED. PRODUCTIVE COUGH WITH THICK YELLOW/BROWN SPUTUM PRESENT. PT ENCOURAGED TO CLEAR SPUTUM FROM AIRWAY. PT OXYGEN SAT 92% ON RA. PT ABLE TO MAKE NEEDS KNOWN. CALL LIGHT WITHIN REACH, WCTM.
[2023-06-24 15:02] VITALS: BP 131/61
--- NOTE | 2023-06-24 16:48 | NUR ---
MR WILKERSON C/O SOB ON MINIMAL EXERTION, DIZZYNESS AND LIGHTHEADEDNESS WHEN HE GETS UP OUT OF BED TO THE CHAIR. EDUCATED ON BENEFITS OF MOBILITY. WEANED OFF OXYGEN WITH SAT 90-92% ON ROOM AIR. PT PREFERS TO HAVE OXYGEN ON. RESP THERAPY TREATMENTS AND FLUTTER VALVE WHICH PT IS DOING. C/O RIGHT CHEST PAIN EXACERBATED ON COUGHING, EASED WITH ORAL MEDICATIONS. BED LOW, CALL LIGHT IN REACH.
[2023-06-24 19:22] VITALS: BP 133/64
--- NOTE | 2023-06-25 03:12 | NUR ---
END OF SHIFT SUMMARY PT A&O x4, VSS, AFEBRILE. PT ON RA, OXYGEN SAT AT 93%, SOB NOTED WITH EXERTION. PT UP AD MAITE WITH BATHROOM PRIVILAGES. PT CALM AND COOPERATIVE WITH CARE PRIVIDED. PT EXPERIENCED SOME DIZZINESS/LIGHTHEADEDNESS WITH WALKING TO BATHROOM. PT ENCOURAGED TO CALL FOR SBA WHEN FEELING DIZZY. PT TOOK NICE DEEP BREATHES. MINIMAL COUGHING HEARD FROM PT'S ROOM OVERNIGHT, PT SLEPT WELL. PAIN MANAGED WITH PRN ULTRAM, WHICH WAS EFFECTIVE. PT C/O PAIN TO CHEST WHEN COUGHING. CALL LIGHT WITHIN REACH, WCTM.
[2023-06-25 03:15] VITALS: BP 125/65
[2023-06-25 07:25] VITALS: BP 129/75
[2023-06-25 15:09] VITALS: BP 118/62
--- NOTE | 2023-06-25 17:20 | NUR ---
SHIFT SUMMARY MR WILKERSON HAS BEEN ON ROOM AIR ALL THIS SHIFT. STRONG COUGH WITH SCANT SPUTUM. DOING FLUTTER VALVE. UP TO CHAIR TWICE THIS SHIFT, STILL EXPERIENCING LIGHTHEADEDNESS WHEN HE GETS UP BUT HE SAID LESS DIZZYNESS THAN PREVIOUS DAYS OF THIS HOSPITAL STAY. HE WAS REMINDED TO CALL FOR STAND-BY ASSISTANCE BEFORE GETTING UP D/T LIGHTHEADEDNESS AND HAS DONE. BED LOW, CALL LIGHT IN REACH.
[2023-06-25 19:39] VITALS: BP 129/70
[2023-06-26 04:23] VITALS: BP 129/70
--- NOTE | 2023-06-26 04:54 | NUR ---
END OF SHIFT SUMMARY PT A&O x4, VSS, ON RA, AFEBRILE. PT CALM AND COOPERATIVE WITH CARE PROVIDED. PT APPEARED TO HAVE SLEPT WELL THROUGHOUT THE SHIFT. PT C/O PAIN TO UPPER CHEST THAT OCCURS WITH COUGHING EPISODES. PAIN MANAGED WITH PRN TRAMADOL WITH GOOD RESULTS. COUGH WASN'T HEARD OVERNIGHT. RESP RATE EVEN AND UNLABORED, EXPIRATORY WHEEZING PRESENT. PLAN IS TO BE DISCHARGED BACK TO THE [facility] TODAY. CALL LIGHT BARBARA WOOD.
[2023-06-26 07:25] VITALS: BP 125/72
--- NOTE | 2023-06-26 08:53 | NUR ---
pt up to chair for breakfast, up in room ad gilmar, a/ox4, states he's not doing very well, lungs have exp wheezing t/o, resp even and unlabored, no cough noted, hrr, no edema noted, ppp+1, cap refill <3sec, vs stable, afebrile, piv site to lac site is clear and patent, btx4, abd flat soft nontender, voids without diff, skin c/w/d, maew, chris, call light in reach.
--- NOTE | 2023-06-26 12:34 | NUR ---
pt was complaining of tight chest pain from coughing, medicated as ordered, he reports is some better, has a moist cough, he reports not able to come up enough to spit it out, eating lunch at this time, no further needs at this time. call light in reach.
--- NOTE | 2023-06-26 14:31 | NUR ---
pt working hard to breath, sats are 95%, did put a few liters o2 on him for comfort, pt reports his chest hurst badly from coughing, call to Dr. Garcia, recieved order for toradol, this was given. assisted pt back to bed. call light in reach.
--- NOTE | 2023-06-26 16:41 | NUR ---
report given to Estephania FUENTES, pt resting in bed, no acute changes this shift. call light in reach.
[2023-06-26 20:43] VITALS: BP 121/63
[2023-06-27 03:44] VITALS: BP 120/71
--- NOTE | 2023-06-27 04:40 | NUR ---
SHIFT SUMMARY ADMITTED FOR ACUTE HYPOXIC RESPIRATORY FAILURE. FULL CODE. PLAN IS DC TODAY. HE LIVES AT THE [facility]. ON REGULAR DIET. A&O X4. ON RA. REGULAR DIET. INDEPENDENT IN ROOM. PAIN RX GIVEN FOR CHEST PAIN FROM COUGHING THIS SHIFT. HX: COPD, LUNG CANCER, LOBECTOMY.
[2023-06-27 08:03] VITALS: BP 115/64
[2023-06-27] MEDS ORDERED: ACET325 PO (13:05)
[2023-06-27] MEDS ORDERED: BENZ100A PO (13:06)
[2023-06-27] MEDS ORDERED: GUAI600T33 PO (13:07)
[2023-06-27] MEDS ORDERED: TRAM50 PO (13:07)
[2023-06-27] MEDS ORDERED: TRAZ50 PO (13:08)
[2023-06-27] MEDS ORDERED: VISBIOME 112.51 EACH PO (13:09)
[2023-06-27] MEDS ORDERED: ALBU90OI INH (13:10)
[2023-06-27] MEDS ORDERED: AMOCLA500 PO (13:11)
[2023-06-27] MEDS ORDERED: FLUTICASONE-SA1 EAC2 INH (13:13)
[2023-06-27] MEDS ORDERED: PRED20 PO (13:14)
--- NOTE | 2023-06-27 14:50 | NUR ---
PATIENT DISCHARGED TO HOME (LIVES AT THE [facility]) WITH HOME HEALTH. IV SALINE LOCK REMOVED WITHOUT INCIDENT. VERBALIZED UNDERSTANDING OF D/C INSTRUCTIONS, BUT STATED HE CANNOT HOGSHEAD WRECKER HIS MEDICATIONS UNTIL TOMORROW. DECLINED WRITTEN RX FOR TRAMADOL. THIS AUTHOR CALLED FOR [facility], WILL MEET HIM DOWN IN ED. OFF UNIT VIA W/C AT 1343. NO PERSONAL BELONGINGS LEFT BEHIND IN ROOM.
== END 2023-06-27 13:43 | disposition home health service (06) | DRG 189 ==
LOC: ER 07:21 → MEDS 13:23
PROVIDERS: Emergency Medicine; ADMIT Family Medicine
DX: J96.01 Acute respiratory failure with hypoxia (principal); J44.1 Chronic obstructive pulmonary disease with (acute) exacerbation; Z59.00 Homelessness unspecified; R65.10 Systemic inflammatory response syndrome (SIRS) of non-infectious origin without acute organ dysfunction; F17.210 Nicotine dependence, cigarettes, uncomplicated; R00.0 Tachycardia, unspecified; N40.0 Benign prostatic hyperplasia without lower urinary tract symptoms; F32.A Depression, unspecified; Z85.118 Personal history of other malignant neoplasm of bronchus and lung; Z98.890 Other specified postprocedural states; Z88.8 Allergy status to other drugs, medicaments and biological substances; Z11.52 Encounter for screening for COVID-19; Z79.899 Other long term (current) drug therapy; Z71.6 Tobacco abuse counseling
CPT/HCPCS: 0202U; 36415; 71045; 80048; 80053; 84100; 84484; 85025; 87070; 87205; 93005; 93010; 94640; 94644; 94645; 94664; 94760; 94761; 96365; 96366; 96375; 97110; 97116; 97162; 97530; 99285-25; A9270; J0696; J1650; J1885; J1940; J2060; J2930; J7050

== ENCOUNTER 2023-06-29 10:19 | Emergency (ER) | payer MEDICARE, OTHER ==
[~2023-06-29] VITALS: Ht 170.2 cm; Wt 61.2 kg
[~2023-06-29 10:19] MED LIST changes: +ACET325 PO; +AMOCLA500 PO; +BENZ100A PO; +FLUTICASONE-SA1 EAC2 INH; +GUAI600T33 PO; +TRAM50 PO; +TRAZ50 PO
[2023-06-29 10:51] LABS: BASOPHILS ABSOLUTE AUTO 0.02 K/mm3 (0.00-0.23); BASOPHILS PERCENT AUTO 0 % (0-2); EOSINOPHILS PERCENT AUTO 0 % (0-6); Hematocrit 52.6 % (37.0-53.0); IMMATURE GRAN ABSOLUTE AUTO 0.08 K/mm3 (0.00-0.10); IMMATURE GRAN PERCENT AUTO 1 % (0-1); LYMPHOCYTES ABSOLUTE AUTO 0.53 K/mm3 (0.84-5.20); LYMPHOCYTES PERCENT AUTO 4 % (21-46); MONOCYTES ABSOLUTE AUTO 0.22 K/mm3 (0.16-1.47); MONOCYTES PERCENT AUTO 2 % (4-13); Mean Corpuscular HGB 31.7 pg (26.0-34.0); Mean Corpuscular HGB Conc 34.2 g/dL (31.5-36.5); Mean Corpuscular Volume 93 fL (80-100); NEUTROPHILS ABSOLUTE AUTO 12.01 K/mm3 (1.96-9.15); NEUTROPHILS PERCENT AUTO 93 % (41-73); Platelet Count 237 K/mm3 (150-400); RDW Coefficient Variation 13.2 % (11.7-14.2); Red Blood Cell Count 5.67 M/mm3 (4.30-5.90); White Blood Cell Count 12.86 K/mm3 (4.00-11.30)
[2023-06-29 11:06] LABS: Albumin, Blood 3.2 g/dL (3.4-5.0); Bilirubin, Total 1.7 mg/dL (0.1-1.0); Calcium, Blood 8.1 mg/dL (8.5-10.1); Creatinine, Blood 0.62 mg/dL (0.60-1.20); Globulin, Blood 3.3 g/dL (2.2-4.0); Potassium, Blood 3.9 mmol/L (3.5-5.5); Total Protein, Blood 6.5 g/dL (6.4-8.2)
[2023-06-29 13:30] VITALS: BP 128/60
== END 2023-06-29 14:25 | disposition home or self-care (01) ==
LOC: ER 10:19
PROVIDERS: Emergency Medicine
DX: J44.1 Chronic obstructive pulmonary disease with (acute) exacerbation (principal); Z88.8 Allergy status to other drugs, medicaments and biological substances; Z79.899 Other long term (current) drug therapy; F17.200 Nicotine dependence, unspecified, uncomplicated
CPT/HCPCS: 71045; 80053; 83880; 84484; 85025; 85379; 93005; 93010; 94640; 94664; 96374; 96375; 99285-25; A9270; J1885; J2930

== ENCOUNTER 2023-07-16 08:28 | Inpatient (IN) | payer MEDICARE, OTHER ==
[~2023-07-16] VITALS: Ht 170.2 cm; Wt 49.5 kg
[2023-07-16 08:58] LABS: Base Excess Venous 9.1 mmol/L; Bicarbonate Venous 30.1 mmol/L (24.0-30.0); PCO2 Venous 56.4 mmHg (38-42); pH Blood Venous 7.39 (7.34-7.37)
[2023-07-16 09:04] LABS: BASOPHILS ABSOLUTE AUTO 0.01 K/mm3 (0.00-0.23); BASOPHILS PERCENT AUTO 0 % (0-2); EOSINOPHILS ABSOLUTE AUTO 0.03 K/mm3 (0.00-0.68); EOSINOPHILS PERCENT AUTO 0 % (0-6); Hematocrit 45.7 % (37.0-53.0); Hemoglobin 15.6 g/dL (13.5-17.5); IMMATURE GRAN ABSOLUTE AUTO 0.02 K/mm3 (0.00-0.10); IMMATURE GRAN PERCENT AUTO 0 % (0-1); LYMPHOCYTES ABSOLUTE AUTO 0.81 K/mm3 (0.84-5.20); LYMPHOCYTES PERCENT AUTO 10 % (21-46); MONOCYTES ABSOLUTE AUTO 0.52 K/mm3 (0.16-1.47); MONOCYTES PERCENT AUTO 7 % (4-13); Mean Corpuscular HGB 31.8 pg (26.0-34.0); Mean Corpuscular HGB Conc 34.1 g/dL (31.5-36.5); Mean Corpuscular Volume 93 fL (80-100); Mean Platelet Volume 9.8 fL (9.1-12.4); NEUTROPHILS ABSOLUTE AUTO 6.41 K/mm3 (1.96-9.15); NEUTROPHILS PERCENT AUTO 82 % (41-73); Platelet Count 216 K/mm3 (150-400); RDW Coefficient Variation 13.2 % (11.7-14.2); RDW Standard Deviation 45.1 fL (35.1-46.3); Red Blood Cell Count 4.91 M/mm3 (4.30-5.90)
[2023-07-16 09:23] LABS: Albumin, Blood 2.9 g/dL (3.4-5.0); Albumin/Globulin Ratio 0.9 (0.8-1.8); Bilirubin, Total 0.8 mg/dL (0.1-1.0); Calcium, Blood 8.8 mg/dL (8.5-10.1); Creatinine, Blood 0.56 mg/dL (0.60-1.20); Globulin, Blood 3.4 g/dL (2.2-4.0); Potassium, Blood 3.5 mmol/L (3.5-5.5); Total Protein, Blood 6.3 g/dL (6.4-8.2)
[2023-07-16 09:43] LABS: Influenza A, PCR NEGATIVE (NEGATIVE); Influenza B, PCR NEGATIVE (NEGATIVE); Resp Syncytial Virus, PCR NEGATIVE (NEGATIVE); SARS-Cov-2 (COVID-19) PCR, MMC NEGATIVE (NEGATIVE)
[2023-07-16 17:16] VITALS: BP 104/62
--- NOTE | 2023-07-16 17:42 | NUR ---
PT ARRIVED 1710 AOX4 AND COOPERATIVE OF CARE. PT IS SOB STATES HE DOES NOT NEED BREATHING TREATMENT YET. LS ARE WHEEZY THROUGHOUT. PT IS A ONE PERSON TO TRANSFER HE IS FEELING WEEK DUE TO SOB. PT SETTLED IN BED VERY QUITE AND NOT MAKING A LOT OF EYE CONTACT. WILL CONTINUE TO MONITOR.
[2023-07-16 19:39] VITALS: BP 95/51
[2023-07-17 04:14] VITALS: BP 117/59
--- NOTE | 2023-07-17 05:27 | NUR ---
SHIFT SUMMARY PT CONTINUES TO HAVE A SITTER. PT COOPERATIVE WITH CARE BUT IS WITHDRAWN AND QUIET. PT DID EAT SOME SNACKS EARLIER IN THE SHIFT AND HE HAS BEEN ASLEEP MOST OF THE NIGHT.
[2023-07-17 06:01] LABS: Base Excess Venous 6.8 mmol/L; PCO2 Venous 42.4 mmHg (38-42); pH Blood Venous 7.47 (7.34-7.37)
[2023-07-17 06:18] LABS: BASOPHILS PERCENT AUTO 0 % (0-2); EOSINOPHILS PERCENT AUTO 0 % (0-6); Hematocrit 39.2 % (37.0-53.0); Hemoglobin 13.4 g/dL (13.5-17.5); IMMATURE GRAN ABSOLUTE AUTO 0.03 K/mm3 (0.00-0.10); IMMATURE GRAN PERCENT AUTO 1 % (0-1); LYMPHOCYTES ABSOLUTE AUTO 0.35 K/mm3 (0.84-5.20); LYMPHOCYTES PERCENT AUTO 6 % (21-46); MONOCYTES ABSOLUTE AUTO 0.12 K/mm3 (0.16-1.47); MONOCYTES PERCENT AUTO 2 % (4-13); Mean Corpuscular HGB 31.7 pg (26.0-34.0); Mean Corpuscular HGB Conc 34.2 g/dL (31.5-36.5); Mean Corpuscular Volume 93 fL (80-100); Mean Platelet Volume 9.4 fL (9.1-12.4); NEUTROPHILS ABSOLUTE AUTO 5.26 K/mm3 (1.96-9.15); NEUTROPHILS PERCENT AUTO 91 % (41-73); Platelet Count 173 K/mm3 (150-400); RDW Coefficient Variation 13.2 % (11.7-14.2); RDW Standard Deviation 44.7 fL (35.1-46.3); Red Blood Cell Count 4.23 M/mm3 (4.30-5.90); White Blood Cell Count 5.76 K/mm3 (4.00-11.30)
[2023-07-17 06:42] LABS: Bun/Creatinine Ratio 39.2 (12.0-20.0); Calcium, Blood 8.5 mg/dL (8.5-10.1); Creatinine, Blood 0.51 mg/dL (0.60-1.20); Potassium, Blood 4.1 mmol/L (3.5-5.5)
[2023-07-17 07:33] VITALS: BP 117/65
[2023-07-17 15:24] VITALS: BP 117/57
--- NOTE | 2023-07-17 18:27 | NUR ---
SHIFT SUMMARY Pt remains A&Ox3 this shift. 1:1 SI sitter remains at bedside. Pt continues to verbalize the intent to OD on Fentanyl. He is not sure how to obtain. Pt is willing to go to inpt psych. Resp even nonlabored. Resp tx provided. voiding without difficulty. Pain and safety maintained. Will continue to monitor this shift.
[2023-07-17 20:38] VITALS: BP 111/70
--- NOTE | 2023-07-18 05:12 | NUR ---
SHIFT SUMMARY PT SLEEPING MOST OF THE NIGHT. SITTER AT BEDSIDE. PT HAS NO COMPLAINTS OR NEEDS AT THIS TIME.
[2023-07-18 05:20] VITALS: BP 142/75
[2023-07-18 07:27] VITALS: BP 130/70
[2023-07-18 16:57] VITALS: BP 144/61
--- NOTE | 2023-07-18 17:43 | NUR ---
SHIFT SUMMARY PT AWAITING INPATIENT PSYCH ONCE MEDICALLY STABLE. CONTINUES TO COMPLAIN OF SOB OCCATIONALLY. PT STATES HE THINKS THIS IS MAKING HIM A LITTLE ANXIOUS. EDUCATION ON DEEP BREATHING TO HELP ANXIETY AND LUNG FUNCTION. PT UNWILLING TO GET OOB AND SIT UP IN CHAIR. PT STATES IT DID NOT HELP HIS LUNGS BEFORE AND DOES NOT WANT TO DO IT NOW. HIGH SI ON NURSING REVALUATION THIS AM. AWARE. 1:1 SITTER IN ROOM. PT C/O PAIN BUT DENIES TYLENOL STATING IT DOES NOT WORK. COUGH MEDICATIONS ADDED TO EMAR PER DR. WERNER. ADMINISTERED ORDERED. NO OTHER ACUTE CHANGES IN ASSESSMENT AT THIS TIME. VS REVIEWED. CALL LIGHT IN REACH.
[2023-07-18 19:43] VITALS: BP 135/62
[2023-07-19 05:04] VITALS: BP 138/74
[2023-07-19 05:07] LABS: Base Excess Venous 6.9 mmol/L; PCO2 Venous 42.3 mmHg (38-42); pH Blood Venous 7.47 (7.34-7.37)
[2023-07-19 05:31] LABS: Bun/Creatinine Ratio 41.2 (12.0-20.0); Calcium, Blood 8.1 mg/dL (8.5-10.1); Creatinine, Blood 0.56 mg/dL (0.60-1.20); Potassium, Blood 3.9 mmol/L (3.5-5.5)
--- NOTE | 2023-07-19 06:41 | NUR ---
SHIFT SUMMARY: PT IS ADMITTED FOR COPD EXACERBATION AND IS A DNR. IS ALERT AND ABLE TO MAKE NEEDS KNOWN. IS ON SI PRECAUTIONS. STATES THAT HE HAS INTENT AND PLAN. 1:1 SITTER CURRENTLY WITH HIM. IV TO LEFT AC IS PATENT WITH DRESSING THAT IS CDI. STATES THAT HE HAS SOME MILD JOINT STIFFNESS.
[2023-07-19 07:33] VITALS: BP 137/70
--- NOTE | 2023-07-19 17:02 | NUR ---
SHIFT SUMMARY- PT IS A/O, PLESANT AND COOPERATIVE. HE IS EATING AND DRINKING WELL. 1:1 SITTER FOR THE DURATION OF THIS SHIFT FOR SAFTEY. AMBULATING TO THE RESTROOM, PT BECOMES VERY SHORT OF BREATH WITH AMBULATION. HIS BED IS IN THE LOW POSITION AND CALL LIGHT IS WITIN REACH. PT WAS SEEN BY PSYCH TODAY.
[2023-07-19 19:44] VITALS: BP 133/71
[2023-07-20 02:41] VITALS: BP 140/73
--- NOTE | 2023-07-20 06:27 | NUR ---
SHIFT SUMMARY: PT IS ADMITTED FOR COPD EXACERBATION AND IS A DNR. IS ALERT AND ABLE TO MAKE NEEDS KNOWN. IS ON SI PRECAUTIONS. STATES THAT HE HAS INTENT AND PLAN. 1:1 SITTER CURRENTLY WITH HIM. IV TO LEFT AC IS PATENT WITH DRESSING THAT IS CDI. RESTARTED REMERON AT HS. SEEMED TO HAVE RESTED THROUGH MOST OF THE NIGHT.
[2023-07-20 07:48] VITALS: BP 135/72
--- NOTE | 2023-07-20 19:21 | NUR ---
SHIFT SUMMARY: PT A/O X 4, IND IN ROOM PLEASANT AND COOPERATIVE. SITTER FOR MOD SI PRECAUTIONS. PT REPORTED SUICIDE IDEATION THIS AM. PT DID NOT HAVE ANY SIGNS OF HARMING SELF THROUGHOUT THE DAY. PT CONTINUES TO BE SOB WITH EXERTION. PT REPORTS HE GETS UP HOURLY TO URINATE BUT REPORTS THIS IS HIS BASELINE SINCE HE WAS A TEENAGER. URINE IS CLEAR YELLOW NO FOUL SMELL. PT DENIES PAIN WITH URINATION. NO OTHER COMPLAINTS THROUGHOUT THE DAY. BREATHING TX EFFECTIVE IN TREATING SOB.
[2023-07-20 20:41] VITALS: BP 120/67
[2023-07-21 04:45] VITALS: BP 143/82
--- NOTE | 2023-07-21 05:19 | NUR ---
SHIFT SUMMARY 67 YR M ADMITTED ON 07/17/23 FOR COPD EXACERBATION. DNR. PT ADMITTED THAT HE STILL HAS PLANS TO COMMIT SUICIDE. WHEN ASKED IF HE PLANS TO ACT ON THESE THOUGHTS HE STATES YES, BUT NOT HERE BECAUSE WE ARE WATCHING HIM. HE IS PLEASANT TO STAFF AND IS COOPERATIVE WITH CARE. HE GETS SHORT OF BREATH AFTER AMBULATING TO THE BATHROOM, AND IS GETTING SCEDULED BREATHING TREATMENTS. SITTER IN ROOM.
[2023-07-21 06:16] LABS: Hemoglobin 15.5 g/dL (13.5-17.5); Mean Corpuscular HGB 31.4 pg (26.0-34.0); Mean Corpuscular HGB Conc 33.7 g/dL (31.5-36.5); Mean Corpuscular Volume 93 fL (80-100); Mean Platelet Volume 9.1 fL (9.1-12.4); NRBC ABSOLUTE 0.02 K/mm3 (0.00-0.02); NRBC Auto 0.3 /100 WBC (0.0-0.2); Platelet Count 264 K/mm3 (150-400); RDW Coefficient Variation 13.3 % (11.7-14.2); RDW Standard Deviation 45.5 fL (35.1-46.3); Red Blood Cell Count 4.93 M/mm3 (4.30-5.90); White Blood Cell Count 7.91 K/mm3 (4.00-11.30)
[2023-07-21 06:38] LABS: Bun/Creatinine Ratio 42.1 (12.0-20.0); Calcium, Blood 8.3 mg/dL (8.5-10.1); Creatinine, Blood 0.57 mg/dL (0.60-1.20)
[2023-07-21 07:26] LABS: BAND PERCENT MAN 1 % (0-8); BASOPHILS PERCENT MAN 0 % (0-2); EOSINOPHILS PERCENT MAN 0 % (0-6); LYMPHOCYTES ABSOLUTE MAN 0.47 K/mm3 (0.84-5.20); LYMPHOCYTES PERCENT MAN 6 % (21-46); METAMYELOCYTE ABSOLUTE MAN 0.07 K/mm3 (0.00-0.00); METAMYELOCYTE PERCENT MAN 1 % (0-0); MONOCYTES ABSOLUTE MAN 0.07 K/mm3 (0.16-1.47); MONOCYTES PERCENT MAN 1 % (4-13); MYELOCYTE ABSOLUTE MAN 0.23 K/mm3 (0.00-0.00); MYELOCYTE PERCENT MAN 3 % (0-0); NEUTROPHILS ABSOLUTE MAN 7.03 K/mm3 (1.96-9.15); SEG NEUTROPHILS PERCENT MAN 88 % (41-73); TOTAL CELLS COUNTED 100
[2023-07-21 07:31] VITALS: BP 124/80
[2023-07-21 15:25] VITALS: BP 132/73
--- NOTE | 2023-07-21 17:28 | NUR ---
SHIFT SUMMARY: PT A/O X4, IND IN ROOM, PLEASANT AND COOPERATIVE. PT CONTINUES TO EXHIBIT SUICIDAL IDEATION WITH PLAN AND INTENT IF HE GETS DISCHARGED. WHEN ASKED WHAT HIS PLAN IS PT STATED "I WILL GO GET HEROIN AND FENTANYL AND OVERDOSE MYSELF. IT'S EASY TO GET." PT DENIES WANTING TO ACT OUT PLAN WHILE IN HOSPITAL. PT COMPLAINED OF PENIS SWELLING THIS AFTERNOON. DR. RAY NOTIFIED OF COMPLAINT AND SHE CAME TO DO ASSESSMENT WITH ME WITNESS. NO EDEMA OBSERVED. NO SWELLING TO ANKLES OR FEET. PT CONTINUES TO EXHIBIT SOB WITH EXERTION. BNP CHECKED AND WAS 59. PT REPORTS CONTINUED SPUTUM PRODUCTION WITH COUGH.
[2023-07-21 19:41] VITALS: BP 138/75
[2023-07-22 03:32] VITALS: BP 133/76
[2023-07-22 07:29] VITALS: BP 143/78
--- NOTE | 2023-07-22 08:42 | NUR ---
PT REPORTS OF "THINKING KILLING HIMSELF, PER PATIENT WHEN I GET OUT OF HERE I WANT TO OD MYSELF BY TAKING FENTANYL, BECAUSE OF HOW I FEEL BEING DEPRESSED FOR A WHILE NOW." PER PATIENT BUT I'M WILLING TO GET HELP WITH DEPRESSION AND HE MENTIONED ABOUT PLAN OF CARE TO HAVE INPATIENT PSYCH IN [place] [facility]. THIS RN ASK PATIENT IF HE HAS OTHER CONCERN AT THIS TIME, PER PATIENT "I JUST WANT TO GET BETTER."
[2023-07-22 14:57] VITALS: BP 127/63
--- NOTE | 2023-07-22 16:44 | NUR ---
SHIFT SUMMARY: PATIENT A/OX4, ANSWER TO QUESTIONS APPROPRIATELY AND ABLE TO MAKE NEEDS KNOWN. PATIENT IS CALM, PLEASANT AND COOPERATIVE c CARE. PATIENT CONTINUES TO REPORTS SI, 1:1 SITTER. PATIENT REPORTS OT EPISODE OF DIZZINESS WHILE RESTING IN BED THIS PM. VS TAKEN BP; BP 127/63 c HR OF 116 BPM, RR OF 18 BREATH/MIN, O2 93% ON RA. PATIENT DENIES CP/PRESSURE, N/V AND SOB. PATIENT MEDICATED c PRN PO MECLIZINE FOR DIZZINESS c GOOD EFFECT. PATIENT LUNGS COARSE, CRACKLES AND WHEEZY T/O TO AUSCULTATION. PATIENT STARTED ON PO PREDNISONE TODAY, RECEIVED SCHEDULED MEDS PER EMAR AND BREATHING TX ADMINISTERED BY RT. PATIENT HAS NO COMPLAINTS OR DENIES NEW CONCERNED THIS SHIFT. VITAL SIGNS REVIEWED, EXCELLENT APPEITITE, PIV TO SHIRA SALINE LOCKED, DRESSING C/D/I.
[2023-07-22 19:57] VITALS: BP 132/75
[2023-07-23 04:12] VITALS: BP 125/71
[2023-07-23 07:47] VITALS: BP 133/86
--- NOTE | 2023-07-23 08:32 | NUR ---
ASSESSMENT NOTE: PT REPORTS SI NOT HER IN THE HOSPITAL, BUT PER PATIENT " SOON I GET OF OUT OF HERE I WANT TO OD MYSELF c FENTANYL." EDUCATE PATIENT c PLAN OF CARE c REGARDS TO HIS ADMITTING DX'S OF COPD AND WILL BE TRANSITIONING TO INPATIENT PSYCH. PATIENT VERBALIZES UNDERSTANDING AND PER PATIENT "THAT'S WHAT THE DR'S TOLD ME TOO YESTERDAY." 1:1 SITTER.
[2023-07-23 15:39] VITALS: BP 134/70
--- NOTE | 2023-07-23 16:29 | NUR ---
SHIFT SUMMARY: PATIENT A/OX4, CALM, PLEASANT AND COOPERATIVE c CARE. PATIENT IS ABLE TO MAKE NEEDS KNOWN. PATIENT CONTINUES TO REPORTS SI THIS SHIFT. 1:1 SITTER. PATIENT LUNGS STILL COARSE, CRACKLES AND WHEEZY T/O TO AUSCULTATIONS. PATIENT REPORTS HE IS "COUGHING UP SOME PLEGHM TODAY AND WEANDED c WALKING TO BATHROOM", RA SPO2 RANGES 94-100% THIS SHIFT. PATIENT RECEIVED PO PREDNISONE, ABX, SCHEDULED MEDS PER EMAR AND BREATHING TX ADMINISTERED BY RT. PATIENT DENIES CP/PRESSURE, N/V AND GENERALIZED PAIN. PATIENT DENIES ANY COMPLAINTS OR NEW CONCERNS THIS SHIFT. PATIENT HAS EXCELLENT APPETITE, CONTINENCE OF BOWELS/BLADDER AND AMBULATES TO BATHROOM c SBA. VITAL SIGNS REVIEWED. PIV TO SHIRA SALINE LOCKED.
[2023-07-23 20:14] VITALS: BP 118/67
[2023-07-24 04:26] VITALS: BP 126/68
--- NOTE | 2023-07-24 04:41 | NUR ---
SHIFT SUMMARY PT A&OX4 AND ANSWERS QUESTIONS APPROPRIATELY. PT SLEPT THROUGH MOST OF THE NIGHT AND HAD NO COMPLAINTS OR CONCERNS. 1:1 SITTER OBSERVING DUE TO SUICIDE RISK. VSS. NO ACUTE EVENTS OCCURED DURING SHIFT. PT WAS KEPT IN A POSITION OF SAFETY WITH FALL PRECAUTIONS IN PLACE, A 1:1 SITTER, AND CALL LIGHT IN REACH.
[2023-07-24 08:07] VITALS: BP 126/75
[2023-07-24 13:55] LABS: SARS-Cov-2 (COVID-19) PCR, MMC NEGATIVE (NEGATIVE)
[2023-07-24 15:28] VITALS: BP 128/82
[2023-07-24 17:14] VITALS: BP 128/82
--- NOTE | 2023-07-24 18:06 | NUR ---
SHIFT SUMMARY: PT IS A 67 YEAR OLD MALE HERE FOR COPD EXACERBATION AND SUICIDAL IDEATION. HE COMPLAINS OF DIZZINESS FROM [place] MOSTLY AND VOICES THAT HE DOES CONTINUE TO HAVE THOUGHTS OF SELF HARM AND THAT HE DOES HAVE IDEAS AND A PLAN AND IF HE WERE IN THE "OUTSIDE WORLD" HE WOULD GO THROUGH WITH IT. HE IS CALM, COOPERATIVE, AND PLEASANT. HE HASN'T TRIED TO INFLICT ANY HARM TO HIMSELF DURING THE SHIFT. 1:1 SITTER PRESENT ENTIRE TIME. HE MAKES NEEDS KNOWN AND IS INDEPENDENT IN HIS ROOM. PLAN IS FOR HIM TO GO TO [facility] THIS EVENING. NURSE FROM THE FACILITY OF THE NAME OF [facility] CALLED AND RECEIVED REPORT ON THE PATIENT AND SHE STATES THAT HE HAS BEEN THERE BEFORE. PATIENT IS AWARE OF DISCHARGE PLAN. PLAN OF CARE ONGOING.
[2023-07-24 20:26] VITALS: BP 120/69
--- NOTE | 2023-07-24 21:28 | NUR ---
NOTIFIED NURSE JUVENAL AT [facility] THAT PATIENT WILL NOT BE ARRIVING TONIGHT. UNABLE TO OBTAIN SECURE TRANSPORT. PT WILL BE PICKED UP BY SECURE TRANSPORT AT 10 AM, 07/25/23.
--- NOTE | 2023-07-25 04:12 | NUR ---
SHIFT SUMMARY ADMITTED FOR COPD EXACERBATION. DNR CODE. PLAN IS FOR DC TO INPATIENT PSYCH FACILITY WHEN TRANSPORT IS AVAILABLE. 1:[address]. HX OF SI ATTEMPTS AND INPATIENT PSYCH PLACEMENTS. REGULAR DIET. INDEPENDENT. HX OF LUNG CANCER - IN REMISSION.
[2023-07-25 04:25] VITALS: BP 115/74
[2023-07-25 07:45] VITALS: BP 126/68
--- NOTE | 2023-07-25 17:02 | NUR ---
DISCHARGE NOTE: SECURE TRANSFER ARRIVED AT 1630 TO TRANSPORT PATIENT TO INPATIENT PSYCH. HIS BELONGINGS WERE COLLECTED, PAPERWORK PROVIDED TO [facility], AND PATIENT WHEELED OUT VIA WHEELCHAIR BY SEC[facility] TRANSPORT AND STAFF. PATIENT WAS CALM AND COOPERATIVE DURING DISCHARGE. NO INCIDENT OCCURED.
== END 2023-07-25 16:24 | DRG 189 ==
LOC: ER 08:28 → MEDS 08:29
PROVIDERS: Emergency Medicine; Internal Medicine; ADMIT Internal Medicine
DX: J96.22 Acute and chronic respiratory failure with hypercapnia (principal); J44.1 Chronic obstructive pulmonary disease with (acute) exacerbation; R45.851 Suicidal ideations; F33.9 Major depressive disorder, recurrent, unspecified; E87.3 Alkalosis; Z66 Do not resuscitate; R42 Dizziness and giddiness; N40.0 Benign prostatic hyperplasia without lower urinary tract symptoms; F17.210 Nicotine dependence, cigarettes, uncomplicated; Z85.118 Personal history of other malignant neoplasm of bronchus and lung; Z59.01 Sheltered homelessness; Z90.2 Acquired absence of lung [part of]; Z91.51 Personal history of suicidal behavior
CPT/HCPCS: 0241U; 36415; 71046; 80048; 80053; 82803; 83880; 84484; 85025; 93005; 93010; 94640; 94644; 94645; 94664; 94760; 96365; 96375; 96376; 99285-25; A9270; G0378; J0456; J1650; J2930; J7050; J7512; U0002